=== PATIENT | female | born 1995 | race Caucasian/White ===

== ENCOUNTER 2024-09-07 20:02 | Emergency (ER) | payer MEDICAID ==
[~2024-09-07] VITALS: Ht 175.3 cm; Wt 61.4 kg
[2024-09-07 20:12] VITALS: BP 107/79; PULSE 98; RESP 16; TEMP 98.9; O2SAT 98
[2024-09-07] MEDS ORDERED: CEPH-558 PO (22:31)
[2024-09-07] MEDS ORDERED: SULF1TAB42 PO (22:32)
== END 2024-09-07 22:52 | disposition home or self-care (01) ==
LOC: EMS 20:04
DX: S70.362A Insect bite (nonvenomous), left thigh, initial encounter (principal); W57.XXXA Bitten or stung by nonvenomous insect and other nonvenomous arthropods, initial encounter; Y93.89 Activity, other specified; Y92.89 Other specified places as the place of occurrence of the external cause; Y99.8 Other external cause status
CPT/HCPCS: 99283; Z7502

== ENCOUNTER 2024-09-26 15:40 | Emergency (ER) | payer MEDICAID ==
[~2024-09-26] VITALS: Ht 177.8 cm; Wt 62.7 kg
[~2024-09-26 15:40] MED LIST: CEPH-558 PO; SULF1TAB42 PO
[2024-09-26 15:43] VITALS: TEMP 99.3
[2024-09-26] MEDS: LIDOCAINE 1% 10 ML VIAL SQ ONE (19:00)
[2024-09-26] MEDS: ACETAMINOPHEN 500 MG TABLET PO ONE (19:00)
[2024-09-26] MEDS: CEPHALEXIN MONOHYDRATE 500 MG CAPSULE PO ONE (19:01)
[2024-09-26] MEDS: IBUPROFEN 600 MG TABLET PO ONE (19:01)
[2024-09-26] MEDS: DOXYCYCLINE HYCLATE 100 MG TABLET PO ONE (19:01)
[2024-09-26] MEDS ORDERED: ACET-2080 PO (19:51)
[2024-09-26] MEDS ORDERED: IBUP-1554 PO (19:51)
[2024-09-26] MEDS ORDERED: CEPH-558 PO (19:51)
[2024-09-26] MEDS ORDERED: DOXY-354 PO (19:51)
[2024-09-26 20:00] VITALS: BP 129/71; PULSE 78; RESP 17; O2SAT 98
== END 2024-09-26 21:03 | disposition home or self-care (01) ==
LOC: EMS 15:40
DX: L02.416 Cutaneous abscess of left lower limb (principal)
CPT/HCPCS: 99284; 10160; J3490